=== PATIENT | female | born 1980 | race African-American/Black ===

== ENCOUNTER → 2020-02-15 10:04 | Outpatient (BNVA) | payer OTHER, SELFPAY | DX: Z77.21 Contact with and (suspected) exposure to potentially hazardous body fluids (principal) | CPT/HCPCS: 36415; 84450; 84460; 86803; 87389; 99211 ==

== ENCOUNTER → 2020-06-13 08:34 | Outpatient (BNVA) | payer OTHER, SELFPAY | DX: Z20.822 Contact with and (suspected) exposure to COVID-19 (principal) | CPT/HCPCS: 36415; 84450; 84460; 86803; 87389; 99211 ==